=== PATIENT | male | born 1990 | race Caucasian/White ===

== ENCOUNTER 2017-10-08 15:33 | Emergency (ER) | payer OTHER ==
[2017-10-08 16:57] VITALS: BP 159/106
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
== END 2017-10-08 17:42 | disposition home or self-care (01) ==
LOC: UCCORT 15:33
DX: S33.6XXA Sprain of sacroiliac joint, initial encounter (principal); X50.3XXA Overexertion from repetitive movements, initial encounter; Y93.89 Activity, other specified; Y92.9 Unspecified place or not applicable; I10 Essential (primary) hypertension
CPT/HCPCS: 99202; G0463